=== PATIENT | male | born 1980 | race Caucasian/White ===

== ENCOUNTER 2017-12-07 22:48 | Inpatient (IN) | payer BC ==
[~2017-12-07] VITALS: Ht 170.2 cm; Wt 83.9 kg
[2017-12-07] MEDS ORDERED: IRON159 MG PO (23:20)
[2017-12-07 23:45] VITALS: BP 125/74
[2017-12-08] MEDS ORDERED: Sodium Chloride 500ML 500 ML IV ONE (00:15)
[2017-12-08 00:30] LABS: BASOPHILS % (AUTO) 0.6 % (0.0-2.0); EOSINOPHILS % (AUTO) 0.8 % (0.0-3.0); HEMATOCRIT 28.1 % (42.0-52.0); HEMOGLOBIN 8.2 G/DL (14.2-18.0); LYMPHOCYTES % (AUTO) 21.7 % (20.0-45.0); MEAN CORPUSCULAR VOLUME 64 FL (80-99); MONOCYTES % (AUTO) 9.9 % (1.0-10.0); PLATELET COUNT 229 K/UL (150-450); RED BLOOD COUNT 4.38 M/UL (4.70-6.10); RED CELL DISTRIBUTION WIDTH 14.6 % (11.6-14.8); WHITE BLOOD COUNT 6.6 K/UL (4.8-10.8)
[2017-12-08] MEDS ORDERED: Ketorolac 30mg Inj IV ONE (00:30)
[2017-12-08 00:42] LABS: ANION GAP 7 mmol/L (5-15); BLOOD UREA NITROGEN 11 mg/dL (7-18); CALCIUM 8.6 MG/DL (8.5-10.1); CARBON DIOXIDE 31 MMOL/L (21-32); CHLORIDE 103 MMOL/L (98-107); POTASSIUM 3.6 MMOL/L (3.5-5.1); SODIUM 141 MMOL/L (136-145)
[2017-12-08 00:47] LABS: ALANINE AMINOTRANSFERASE 24 U/L (12-78); ALBUMIN 3.4 G/DL (3.4-5.0); ALBUMIN/GLOBULIN RATIO 0.9 (1.0-2.7); ALKALINE PHOSPHATASE 62 U/L (46-116); ASPARTATE AMINO TRANSFERASE 35 U/L (15-37); BILIRUBIN,TOTAL 0.3 MG/DL (0.2-1.0)
[2017-12-08] MEDS ORDERED: Pantoprazole Inj IVP ONE (01:15)
[2017-12-08 02:12] LABS: HEMATOCRIT 24.7 % (42.0-52.0); HEMOGLOBIN 7.3 G/DL (14.2-18.0); MEAN CORPUSCULAR VOLUME 64 FL (80-99); PLATELET COUNT 205 K/UL (150-450); RED BLOOD COUNT 3.87 M/UL (4.70-6.10); RED CELL DISTRIBUTION WIDTH 13.9 % (11.6-14.8); WHITE BLOOD COUNT 6.1 K/UL (4.8-10.8)
[2017-12-08] MEDS ORDERED: GABAPENTIN800 MG ORAL (03:53)
[2017-12-08] MEDS ORDERED: ATIVAN1 MG ORAL (03:54)
[2017-12-08] MEDS ORDERED: TAMOXIFEN CITRA10 MG ORAL (03:54)
[2017-12-08] MEDS ORDERED: BACTRIM DOUBLE S1 E1 ORAL (03:55)
[2017-12-08 04:13] VITALS: BP 109/66
[2017-12-08 04:30] VITALS: BP 127/68
[2017-12-08] MEDS ORDERED: D5NS 1,000 ML IV SCH (04:58)
[2017-12-08] MEDS ORDERED: Nitroglycerin Subl 0.4mg tab SL PRN (05:00)
[2017-12-08] MEDS ORDERED: Morphine Sulfate 2mg/ml Inj IVP PRN ×2 (05:00)
[2017-12-08] MEDS ORDERED: Mylanta II UD 30ml ORAL PRN (05:00)
[2017-12-08] MEDS ORDERED: Miralax 17gm pkt ORAL PRN (05:00)
[2017-12-08] MEDS ORDERED: D5 1/2NS 1,000 ML IV SCH (05:00)
--- NOTE | 2017-12-08 05:02 | Emergency Room Report ---
History of Present Illness General Chief Complaint: Pain Source: Patient Present Illness HPI Patient is 37-year-old male brought in by self after increased right lower extremity pain. The patient gradual onset of symptoms. He reports having recent heavy exertion where he was lifting a refrigerator. He reports having increased pain to his right lower extremity which is worse with movement. Has any fever. He denies any leg swelling. He had increased pain with extension of his knee. He denies any vomiting. He reports having some dark tarry stools recently. He denies any recent antibiotic use. He reports having been taking aspirin intermittently. Allergies: Coded Allergies: No Known Allergies (Unverified , 12/07/17) Patient History Past Medical History: see triage record Reviewed Nursing Documentation: PMH: Agreed; PSxH: Agreed Nursing Documentation-PMH Past Medical History: No History, Except For Hx Cardiac Problems: No Hx Cancer: No Hx Gastrointestinal Problems: Yes - ulcers Hx Neurological Problems: No Review of Systems All Other Systems: negative except mentioned in HPI Physical Exam Vital Signs Date Time Temp Pulse Resp B/P (MAP) Pulse Ox O2 Delivery O2 Flow Rate FiO2 12/07/17 23:10 98.1 103 16 125/74 99 Room Air 98.1 Sp02 EP Interpretation: reviewed, normal General Appearance: normal inspection, well appearing, no apparent distress, alert, GCS 15 Head: atraumatic ENT: normal ENT inspection, hearing grossly normal, normal voice Neck: normal inspection, full range of motion, supple, no bony tend Respiratory: normal inspection, lungs clear, normal breath sounds, no respiratory distress, no retraction, no wheezing Cardiovascular #1: regular rate, rhythm, no edema Gastrointestinal: normal inspection, normal bowel sounds, non tender, soft, no guarding, no hernia Genitourinary: no CVA tenderness Musculoskeletal: normal inspection, back normal, normal range of motion Neurologic: normal inspection, alert, oriented x3, responsive, 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 Differential diagnosis included was not limited to fracture, muscular injury, gastrocnemius rupture, popliteal aneurysm, muscle tear among others, rhabdomyolysis, anemia. Patient was noted to have evidence of a severe anemia initial laboratory testing. The this was repeated and patient was noted to have decreased hemoglobin from previous blood draw. The patient was type and crossed for blood. Dr. Harsha Rodriguez was contacted for inpatient management. Dr. Villegas was contacted for GI for consult Labs Test 12/08/17 00:14 12/08/17 01:28 Prothrombin Time 10.8 SEC (9.30-11.50) Prothromb Time International Ratio 1.0 (0.9-1.1) Activated Partial Thromboplast Time 24 SEC (23-33) D-Dimer 2.57 mg/L FEU (0.00-0.49) Sodium Level 141 MMOL/L (136-145) Potassium Level 3.6 MMOL/L (3.5-5.1) Chloride Level 103 MMOL/L (98-107) Carbon Dioxide Level 31 MMOL/L (21-32) Anion Gap 7 mmol/L (5-15) Blood Urea Nitrogen 11 mg/dL (7-18) Creatinine 1.0 MG/DL (0.55-1.30) Estimat Glomerular Filtration Rate > 60 mL/min (>60) Glucose Level 103 MG/DL (74-106) Calcium Level 8.6 MG/DL (8.5-10.1) Total Bilirubin 0.3 MG/DL (0.2-1.0) Aspartate Amino Transf (AST/SGOT) 35 U/L (15-37) Alanine Aminotransferase (ALT/SGPT) 24 U/L (12-78) Alkaline Phosphatase 62 U/L (46-116) Total Protein 7.0 G/DL (6.4-8.2) Albumin 3.4 G/DL (3.4-5.0) Globulin 3.6 g/dL Albumin/Globulin Ratio 0.9 (1.0-2.7) White Blood Count 6.1 K/UL (4.8-10.8) Red Blood Count 3.87 M/UL (4.70-6.10) Hemoglobin 7.3 G/DL (14.2-18.0) Hematocrit 24.7 % (42.0-52.0) Mean Corpuscular Volume 64 FL (80-99) Mean Corpuscular Hemoglobin 18.8 PG (27.0-31.0) Mean Corpuscular Hemoglobin Concent 29.3 G/DL (32.0-36.0) Red Cell Distribution Width 13.9 % (11.6-14.8) Platelet Count 205 K/UL (150-450) Mean Platelet Volume 8.6 FL (6.5-10.1) Neutrophils (%) (Auto) % (45.0-75.0) Lymphocytes (%) (Auto) % (20.0-45.0) Monocytes (%) (Auto) % (1.0-10.0) Eosinophils (%) (Auto) % (0.0-3.0) Basophils (%) (Auto) % (0.0-2.0) Last Vital Signs Date Time Temp Pulse Resp B/P (MAP) Pulse Ox O2 Delivery O2 Flow Rate FiO2 12/08/17 04:41 Room Air 12/08/17 04:13 98.1 91 18 109/66 96 98.1 Status: unchanged Disposition: ADMITTED INPATIENT Condition: Improved Referrals: NON PHYSICIAN (PCP) Markie Bose MD Dec 08, 2017 05:02
[2017-12-08] MEDS ORDERED: LORazepam 1mg tab ORAL PRN ×2 (05:15→06:30)
[2017-12-08] MEDS ORDERED: Tamoxifen 10mg tab ORAL SCH (09:00)
--- NOTE | 2017-12-09 06:23 | History & Physical ---
History and Physical History & Physicial patient left Agustina Whiting NP Dec 09, 2017 06:23
--- NOTE | 2017-12-09 06:28 | Discharge Summary ---
Discharge Summary Hospital Course Date of Admission Dec 08, 2017 at 01:24 Date of Discharge Dec 08, 2017 at 09:57 Admitting Diagnosis gi bleeding anemia HPI Kartik Love is a 37 year old male who was admitted on Dec 08, 2017 at 01:24 for Gastrointestinal Bleeding/Anemia Hospital Course Pt presented to ER c/ of R leg swelling and pain x 3 days. Pt stated that he was helping his neighhor move stuff and he strained his leg. Pt described his pain as sharp, and rates it a 10 on the pain scale. Pt is AAOx4. Ambulatory without assistance. Skin intact. Venous duplex scan was negative for DVT. Blood work showed anemia, he stated he has history of ulcers. Patient was admitted for GI bleed and was ordered blood transfusion. Patient was transferred to the floor, but signed AMA. Admitting diagnosis: Anemia possible GI Bleed Discharge Discharge Disposition Patient left AMA Agustina Cho NP Dec 09, 2017 06:28
--- NOTE | 2017-12-11 16:02 | Cardiology Report ---
APPROVED REPORT EKG Measurement Heart [id number] Normal sinus rhythm Incomplete RBBB Borderline ECG
--- NOTE | 2017-12-13 01:35 | Diagnostic Imaging Report ---
APPROVED REPORT CPT Code: 60333 Present Symptoms Lower Extremity Pain: Bilateral BILATERAL: Imaging reveals a patent deep venous system bilaterally. There is no evidence of thrombus within the femoral, popliteal or tibial segments. The greater saphenous veins are also within normal limits. Doppler indicates normal spontaneous flow within these segments.
== END 2017-12-08 09:57 | disposition left against medical advice (07) | DRG 379 ==
LOC: EMR 23:50 → 4E 12-08 01:24 → EDBEDREQ 12-08 03:18 → 4E 12-08 05:06
DX: K92.2 Gastrointestinal hemorrhage, unspecified (principal); D64.9 Anemia, unspecified; M79.661 Pain in right lower leg
CPT/HCPCS: 36415; 80053; 85025; 85379; 85610; 85730; 86850; 86900; 86901; 86920; 93005; 93970; 96374; 96375; 99285